=== PATIENT | female | born 2005 | race Caucasian/White ===

== ENCOUNTER 2024-12-30 13:14 | Emergency (ER) | payer OTHER, SELFPAY ==
[2024-12-30 13:15] VITALS: BP 131/90; PULSE 99; RESP 16; TEMP 37.1; O2SAT 100; BMI 23.5
--- NOTE | 2024-12-30 14:32 | EDS_ITS ---
HPI History of Present Illness Chief Complaint: Hypertension Informant: patient Onset/Context/Timing Onset: Yesterday Context: Sudden Onset Timing: Intermittent Quality: Lightheaded Location: Generalized Worsened by: Nothing Relieved by: Nothing Narrative Narrative: Patient presents with elevated blood pressure that began yesterday. Patient states she felt dizzy and lightheaded. Patient states she checked her blood pressure and the diastolic blood pressure was 91. Patient states that she checked it again today and her blood pressure was 143/99. Patient states she felt lightheaded yesterday. Patient states this lasted a few hours then resolved. Patient states nothing makes her symptoms better and nothing makes them worse. Patient states she did have 1 episode of left upper chest pain yesterday. PFSH PFSH Medical History no medical history no medical history Home Medications ?Medication ?Instructions ?Recorded ?Last Taken ?Type No Known/Unobtainable [No Known 7 Unknown History Home Medications] Allergy/AdvReac Type Severity Reaction Status Date / Time No Known Allergies Allergy Verified 12/30/24 13:15 Surgical History no surgical history no surgical history Social History (Updated 12/30/24 @ 15:[address] Almas Del Angel, DO) Smoking Status: Never smoker Electronic Cigarette Use: with nicotine ROS ROS ED Constitutional Constitutional ED: Denies chills or fever(s) Eyes Eyes: Denies blurry vision or change in vision ENT ENT ED: Denies rhinorrhea or sore throat Cardiovascular Cardiovascular: Reports chest pain; Denies palpitations Respiratory/Chest Respiratory/Chest: Denies cough or dyspnea Gastrointestinal Gastrointestinal: Denies nausea or vomiting Genitourinary Genitourinary ED: Denies dysuria or hematuria Musculoskeletal Musculoskeletal: Denies back pain or neck pain Integumentary Denies abscess or rash Neurologic Neurologic: Reports headache(s); Denies weakness Allergic/Immunologic Allergic/Immunologic ED: Denies mouth swelling or urticaria EXAM Physical Exam Const Vital Signs: 12/30/24 13:15 12/30/24 14:48 Temperature 98.7 F Temperature Source Oral Pulse Rate 99 Respiratory Rate 16 Respiratory Effort Normal Non-Labored Respiratory Pattern Normal Blood Pressure 131/90 H Blood Pressure Mean 103 Pulse Ox 100 Oxygen Delivery Method Room Air Positive well nourished and well developed General Appearance ED: well developed and NAD HEENT Reports moist mucous membranes Neck supple and no JVD Chest Wall palpation of chest normal Resp normal respiratory effort and clear to auscultation bilaterally Cardio regular rate and regular rhythm GI non-tender and non-distended Palpation: soft Extremity normal to inspection General Extremety ED: Negative for edema or tenderness General Extremity: Negative for edema Neuro oriented x3, CN's II-XII intact bilaterally and no sensory deficits noted Sensorium / Orientation: alert Motor Exam: strength 5/5 throughout Psych mental status grossly normal MDM MDM MDM Narrative Medical decision making narrative: Differential diagnosis includes hypertensive urgency, uncontrolled hypertension, pneumonia, bronchitis, and electrolyte abnormalities. EKG will be obtained to assess for cardiac dysrhythmia and cardiac ischemia. Chest x-ray will be obtained to assess for pneumonia and bronchitis. CBC will be obtained to assess for leukocytosis and anemia. Basic metabolic profile obtained to assess for electrolyte abnormality and renal function. Serum hCG will be obtained to assess for . Lab Data Attestation: I reviewed the patient's lab results. Lab results narrative: CBC was reviewed and was within normal limits. Basic metabolic profile was reviewed and was within normal limits. Serum hCG was reviewed and was negative. Labs: Laboratory Results - last 24 hr 12/30/24 15:16 WBC 5.5 RBC 4.58 Hgb 13.9 Hct 40.7 MCV 88.9 MCH 30.3 MCHC 34.2 RDW Std Deviation 37.1 RDW Coeff of Сергей 11.7 Plt Count 249 MPV 10.0 Immature Gran % (Auto) 0.400 Neut % (Auto) 58.9 Lymph % (Auto) 31.1 [place] % (Auto) 8.3 Eos % (Auto) 0.9 Baso % (Auto) 0.4 Absolute Neuts (auto) 3.3 Absolute Lymphs (auto) 1.72 Nucleated RBC % 0 Sodium 135 Potassium 3.9 Chloride Direct 102 Carbon Dioxide 24.6 Anion Gap 8 BUN 8 Creatinine 0.70 Estim Creat Clear Calc 105.16 Est GFR (MDRD) Non-Af 126 BUN/Creatinine Ratio 12.0 Glucose 105 H Calcium 9.0 Serum , Qual NEGATIVE Radiography Chest X-Ray - ED: 2 View, Read by ED Physician, Read by Radiologist and No Acute Disease Diagnostic Testing: Clinical Impression(s) from Imaging Studies Chest X-Ray 12/30/24 15:35 IMPRESSION: Normal chest radiograph. Reading Location: [facility] and lateral chest x-ray was obtained. There are 2 views. On my independent interpretation, lung dsouza are clear. There is normal cardiac silhouette. Bony thorax is normal. There is no acute process noted. Radiologist also interpreted the x-ray and agrees. EKG Initial EKG: Attestation: I personally reviewed and interpreted this EKG as follows: Interpretation: Sinus Rhythm (68) and No Acute Injury Pattern Comments: EKG was obtained. On my independent interpretation, it showed a normal sinus rhythm with a rate of 68. [place] interval, QRS interval, and QTc intervals were all normal. [place] was normal. There are no acute ST or T wave changes. Prior EKG tracings: not available for review Prior: No Prior Treatment and Re-Evaluation :: Nicotine cessation was discussed. Patient was advised of her findings. Patient's repeat blood pressure is 108/81. Patient was instructed to monitor her blood pressures at home. Patient was instructed to follow-up with her primary care physician in 5 to 7 days. Patient was instructed to return if worse in any way. Patient understood and was agreeable with the plan. All questions were answered. Discharge Plan Triage Chief Complaint: Hypertension ED Provider: Almas Del Angel Dx/Rx/DC Orders Clinical Impression: Elevated blood pressure reading without diagnosis of hypertension, Nicotine vapor product user Instructions: ED Hypertension, To Be Confirmed Prescriptions: No Action No Known Home Medications Primary Care Provider: Care Physician,No Primary Referrals: Ayanna Quigley DO [Med Staff - Animal Health Technician] - 5-7 Days Print Language: Sinhala Disposition Disposition: Home, Self Care
--- NOTE | 2024-12-30 14:56 | EKG12_ITS ---
Test Reason : Blood Pressure : */* mmHG Vent. Rate : 68 BPM Atrial Rate : 68 BPM P-R Int : 132 ms QRS Dur : 86 ms QT Int : 384 ms P-R-T Axes : 31 53 19 degrees QTcB Int : 408 ms Normal sinus rhythm Normal ECG Confirmed by Gilmar Sinha ([id number]), non linear editor ROSELYN MOREIRA ([id number]) on 01/02/2025 10:47:33 AM Referred By: MILI Confirmed By: Gilmar Sinha
--- NOTE | 2024-12-30 15:35 | RAD_ITS ---
PROCEDURE: CHEST PA AND LATERAL REASON FOR EXAM: Dizziness and hypertension. TECHNIQUE: Frontal and lateral views of the chest. COMPARISON: None. FINDINGS: EKG electrodes are seen. The heart is not enlarged. The lungs are clear. The bones are unremarkable. RAD/Chest PA and Lateral IMPRESSION: Normal chest radiograph. Reading Location: [id number]
[2024-12-30 15:42] LABS: Absolute Lymphocyte Count 1.72 X10^3/uL (0.83-4.51); Absolute Neutrophil Count 3.3 X10^3/uL (2.0-7.7); Basophil# 0.02 X10^3/uL; Basophil% 0.4 % (0-1); Eosinophil# 0.05 X10^3/uL; Eosinophils% 0.9 % (0-5); Hematocrit 40.7 % (37-47); Hemoglobin 13.9 g/dL (12.0-15.0); Lymphocyte # 1.72 X10^3/ul (0.83-4.51); Lymphocyte % 31.1 % (19-41); Mean Corp Hgb Conc 34.2 g/dL (32-36); Mean Corpuscular Hgb 30.3 pg (27.0-32.0); Mean Corpuscular Volume 88.9 fL (81-99); Monocyte# 0.46 X10^3/uL; Monocyte% 8.3 % (0-10); NRBC Flagged by Analyzer 0 % (0-5); Neutrophil # 3.26 X10^3/uL (2.7-7.7); Neutrophil % 58.9 % (47-70); Platelet Count 249 K/mm3 (150-450); RBC Distribution Width CV 11.7 % (11.6-14.6); RBC Distribution Width SD 37.1 fl (35.1-43.9); Red Blood Count 4.58 M/mm3 (4.2-5.4); White Blood Count 5.5 K/mm3 (4.4-11.0)
[2024-12-30 15:52] LABS: Anion Gap 8 (5-15); BUN 8 mg/dL (4-19); Carbon Dioxide 24.6 mmol/L (22.0-29.0); Chloride 102 mmol/L (96-108); EST Glomerular Filtration Rate 126 (>60); Estimated Creatinine Clearance 105.16 ml/min; Glucose 105 mg/dL (70-99); Potassium 3.9 mmol/L (3.3-5.1); Sodium Level 135 mmol/L (133-145)
[2024-12-30 16:15] LABS: Internal QC Validated? YES +Cl - CLEAR BKGD; Pregnancy, Serum, hCG Quali. NEGATIVE Negative
[2024-12-30 17:02] VITALS: BP 114/80; PULSE 78; RESP 16; TEMP 36.8; O2SAT 99
== END 2024-12-30 17:03 | disposition home or self-care (01) ==
PROVIDERS: Emergency Provider Emergency Medicine; Visit Provider Emergency Medicine
DX: I10 Essential (primary) hypertension (principal); F17.290 Nicotine dependence, other tobacco product, uncomplicated; R07.9 Chest pain, unspecified; R51.9 Headache, unspecified
CPT/HCPCS: 71046; 80048; 84703; 85025; 93005; 99284; A4216